=== PATIENT | male | born 1950 | race Caucasian/White ===

== ENCOUNTER 2016-12-02 21:33 | Inpatient (IN) | payer MEDICARE, OTHER ==
--- NOTE | ~2016-12-02 | CT4 ---
[facility] A Service of [facility] RADIOLOGY TEXT RESULTS PATIENT: JUAREZ COHEN LOCATION: C2A 240-01 : 50 UNIT #: [id number] AGE: [address]: Denilson Rodriguez MD SEX: M ORDER DR: [id number] [address] [address] [id number] I MR#: [id number] Acc #: [id number] NAME: JUAREZ COHEN : 1950 SEX: M STUDY DATE/TIME: 12/02/2016 22:16 UNIT: SEDOF ROOM: [id number] STUDY DESCRIPTION: CT Abd and Pelv Wo Cont Attending Physician: Martin Ring M.D. Ordering Physician: Pardeep Bose M.D. Primary Care Physician: Pardeep Fowler M.D. MEDICAL IMAGING REPORT This report is preliminary unless electronic signature is present. EXAM CT scan of the abdomen and pelvis without contrast. DATE OF EXAM 12/02/2016 HISTORY Left lower quadrant abdominal pain extending into the back with nausea for 2 weeks. Evaluate for obstructing renal calculus. TECHNIQUE Spiral CT was performed through the abdomen and pelvis without oral or intravenous contrast administration using renal stone protocol. NOTE: This CT exam was performed with one or more of the following radiation dose reduction techniques: automatic exposure control, adjustment of mA and/or kV according to patient size, and iterative reconstruction. FINDINGS There is no obstructing renal or ureteral calculus. There is a 1 mm nonobstructing stone in the left kidney. The right kidney is normal. There is fatty infiltration of the liver. The spleen, pancreas and adrenal glands are normal. The gallbladder is surgically absent. PELVIS FINDINGS: There is colonic diverticulosis. There is wall thickening and inflammatory stranding in the fat surrounding the proximal sigmoid colon probably representing diverticulitis. There is no bowel obstruction or abscess. Given the short segment of involvement, the possibility of colon neoplasm is not excluded on the basis of this examination. Clinical correlation and follow up is recommended. No adenopathy is seen and there is no free fluid in the abdomen or pelvis. The prostate is enlarged measuring 6.6 cm x 6.1 cm x 6.6 cm. There is a left inguinal hernia containing only fat. Atelectatic changes are seen at the lung bases with elevation of the right hemidiaphragm. [facility]. [facility] A Service of [facility] RADIOLOGY TEXT RESULTS PATIENT: JUAREZ COHEN LOCATION: [facility] : 50 UNIT #: [id number] AGE: [address]: Denilson Rodriguez MD SEX: M ORDER DR: IMPRESSION 1. Inflammatory stranding in the mesenteric fat surrounding the proximal sigmoid colon with wall thickening of the colon in this region most likely representing sigmoid diverticulitis. There is no evidence of bowel obstruction or abscess. There is a short segment involvement of the colon. Possibility of colon neoplasm is not completely excluded on the basis of this examination. Clinical correlation and follow up recommended. 2. Fatty infiltration of the liver. 3. Surgical absence of the gallbladder. 4. No obstructing renal or ureteral calculus. Tiny nonobstructing stone left kidney. 5. Enlarged prostate. 6. Left inguinal hernia containing only fat. Dictated by... Cory Romero M.D. THIS IS AN ELECTRONICALLY VERIFIED REPORT Cory Romero M.D. at 12/04/2016 2:19 PM Celeste TD: 12/03/2016 16:53 JOB #: [id number] MEDICAL IMAGING REPORT
--- NOTE | ~2016-12-02 | HP ---
Unit #: [id number] #: [id number] Patient: JUAREZ COHEN [id number] [address] [address] [id number] I MR#: [id number] NAME: JUAREZ COHEN ROOM: 240 Age: 66 Sex: M Admission Date: 12/02/2016 : 1950 Attending Physician: Denilson Rodriguez M.D. Primary Care Physician: Pardeep Fowler M.D. HISTORY AND PHYSICAL REASON FOR ADMISSION Abdominal pain, acute diverticulitis. HISTORY OF PRESENT ILLNESS The patient is a very pleasant 66-year-old male who states that approximately 2 or 3 weeks ago he began feeling right-sided flank pain and/or discomfort. He had a prior history of nephrolithiasis and went to go see his primary care physician. He was actually being set up for an outpatient CT scan for kidney stone protocol. Unfortunately, over the past 48 to 72 hours his pain worsened in his left lower quadrant with radiation into his back and, therefore, he presented to the emergency room for further evaluation. He underwent a CT of the abdomen and pelvis which had revealed findings consistent with inflammatory stranding surrounding the proximal sigmoid colon with wall thickening, likely consistent with sigmoid diverticulitis. Official CT report is not available to me, but per emergency room notation results as stated above. His initial white count was also elevated at 13.3 and, thus, he is currently being admitted and I am evaluating him on the medical/surgical floor. PAST MEDICAL HISTORY 1. Nephrolithiasis. 2. Gastroesophageal reflux disease. 3. Diabetes. PAST SURGICAL HISTORY 1. Cervical fusion. 2. Lithotripsy. 3. Cholecystectomy. SOCIAL HISTORY No alcohol. No tobacco use. He currently works at [employer]. FAMILY HISTORY Hypertension. ALLERGIES No known drug allergies. HOME MEDICATIONS 1. Janumet. 2. Amaryl. 3. Allopurinol. Unit #: [id number] #: [id number] Patient: JUAREZ COHEN 4. Aspirin. 5. [place]. 6. Starlix. REVIEW OF SYSTEMS Please see history of present illness. Twelve points otherwise negative except for those positives noted in the history of present illness. PHYSICAL EXAMINATION GENERAL: The patient is a 66-year-old male lying comfortably, in no acute distress. VITALS: Temperature 97.5, pulse 84, respiratory rate 18, blood pressure 123/77. HEENT: Atraumatic, normocephalic. Ears, tympanic membranes no erythema or injection. NECK: Supple. No jugular venous distension. LUNGS: Clear to auscultation bilaterally. No wheezing, rales or rhonchi. HEART: S1 and S2 without murmur. ABDOMEN: Distended with left lower quadrant tenderness noted on palpation. No rebound. No guarding. EXTREMITIES: No lower extremity edema. NEUROLOGIC: The patient is alert and oriented times three. No evidence of any focal nerve deficits. PSYCHIATRIC: The patient demonstrates normal mood and affect. DIAGNOSTIC STUDIES LABORATORY: Aforementioned elevated white count on admission. This morning's white count is currently 9.5. ASSESSMENT 1. Acute sigmoid diverticulitis. 2. Abdominal pain. 3. Prior history of nephrolithiasis. 4. Diabetes. 5. Prior history of chronic pain secondary to degenerative disc disease. PLAN Admission to medical/surgical floor. Appropriate symptom management with morphine on a p.r.n. basis. IV Flagyl. IV Levaquin. Clear diet for today. Follow up white count. Transition to regular diet over the next 24 to 48 hours. Blood cultures currently pending. Plans have been reviewed with the patient in detail. Further hospital course to follow pending clinical course. Dictated by Lilliana Contreras/demetria TD: 12/03/2016 09:09 JOB #: [id number] Unit #: [id number] #: [id number] Patient: JUAREZ COHEN HISTORY AND PHYSICAL X Denilson Rodriguez MD X HISTORY AND PHYSICAL
--- NOTE | ~2016-12-02 | DS ---
Unit #: [id number] #: [id number] Patient: JUAREZ COHEN [id number] [address] [place], [place] [address] [id number] I MR#: [id number] NAME: JUAREZ COHEN ROOM: 240 Age: 66 Sex: M Admission Date: 12/03/2016 : 1950 Discharge Date: 12/04/2016 Attending Physician: Denilson Rodriguez M.D. Primary Care Physician: Pardeep Fowler M.D. DISCHARGE SUMMARY REASON FOR ADMISSION Acute diverticulitis. HISTORY OF PRESENT ILLNESS Please see H and P for complete details of initial part of hospital stay. HOSPITAL COURSE The patient had repeat laboratory studies which yielded a white count of 6.8. His BMP was relatively unremarkable through his hospital course. His A1c was noted to be 6.9%. It seems at this point he has been tolerating a regular diet without any difficulty. No fevers and with a normal white count. He appears stable to be discharged home. At time of discharge, I have recommended that he follow with his PCP in approximately seven to ten days. Consideration for outpatient colonoscopy in approximately four to six weeks secondary to inflammatory changes as well as concern for underlying colon neoplasm is not entirely excluded on the CT scan. I did reinforce with the patient and he says that he will follow up with his PCP and discuss with him as an outpatient. FINAL DISCHARGE DIAGNOSES 1. Acute diverticulitis. 2. Abdominal pain, now resolved. 3. Prior history of nephrolithiasis with negative CT on this hospital admission for renal stone. 4. Gastroesophageal reflux disease. 5. Diabetes. 6. Chronic osteoarthritis. FINAL DISCHARGE MEDICATIONS 1. Levaquin 500 mg p.o. daily x10 days. 2. Flagyl 500 mg p.o. q.8 x10 days. 3. Starlix 120 mg p.o. daily. 4. Janumet , one tablet p.o. b.i.d. 5. Allopurinol 300 mg p.o. daily. 6. Aspirin 81 mg p.o. daily. 7. [place] 10/325, one tablet p.o. q.6 p.r.n. This is a home medication. 8. Amaryl 4 mg daily. DISCHARGE CONDITION Stable. Unit #: [id number] #: [id number] Patient: JUAREZ COHEN DISCHARGE DISPOSITION Home. Dictated by... Lilliana Contreras/med TD: 12/05/2016 09:39 JOB #: [id number] DISCHARGE SUMMARY X Denilson Rodriguez MD X DISCHARGE SUMMARY
[2016-12-02 21:14] LABS: URINE SOURCE CLEAN CATCH
[2016-12-02 21:16] LABS: URINE APPEARANCE CLEAR; URINE BILIRUBIN NEG (NEG); URINE BLOOD NEG (NEG); URINE COLOR YELLOW; URINE KETONE NEG (NEG); URINE LEUKOCYTE ESTERASE NEG (NEG); URINE NITRATE NEG (NEG); URINE PH 5.5 (5-8); URINE PROTEIN NEG (NEG); URINE UROBILINOGEN 0.2 MG/DL (NORM)
[2016-12-02 21:18] LABS: MICRO INDICATED? NO; URINE GLUCOSE NEG (NORM)
[~2016-12-02 21:33] MED LIST: ALLOPURINOL300 MG PO; AMARYL PO; JANUMET 50-1,1 UDTAB PO; NATEGLINIDE120 MG PO; NORCO 10/3251 TAB PO; ST. JOSEPH ASPI81 M2 PO
[2016-12-02 21:53] LABS: BASOPHIL# 0.1 X10e3 (0-0.3); BASOPHIL% 0.8 % (0-2.5); DIFF IND NO; EOSINOPHIL# 0.2 X10e3 (0-0.7); EOSINOPHIL% 1.7 % (0.0-7.0); LYMPHOCYTE# 2.6 X10e3 (1.0-3.5); LYMPHOCYTE% 19.7 % (17.0-45.0); MEAN CELL VOLUME 83.6 FL (83-96); MEAN CORPUSCULAR HEMOGLOBIN 27.9 PG (28-34); MEAN CORPUSCULAR HGB CONC 33.4 g/dL (30-36); MEAN PLATELET VOLUME 7.8 FL (6.5-11.5); MONOCYTE# 1.2 X10e3 (0-1.0); MONOCYTE% 8.8 % (3.0-12.0); NEUTROPHIL# 9.2 X10e3 (1.5-7.1); PLATELET COUNT 238 X10e3 (140-420); RED BLOOD COUNT 5.74 X10e (3.90-5.60); RED CELL DISTRIBUTION WIDTH 14.3 % (11.0-15.5); WHITE BLOOD COUNT 13.3 X10e3 (4.0-10.5)
[2016-12-02 22:06] LABS: ALBUMIN SERUM 4.2 g/dL (3.5-5.0); ALKALINE PHOSPHATASE 54 U/L (32-92); ALT (SGPT) 34 U/L (10-40); AST (SGOT) 29 U/L (10-42); BILIRUBIN,TOTAL 0.5 mg/dL (0.2-2.0); BLOOD UREA NITROGEN 11 mg/dL (9-23); CALCIUM SERUM 9.2 mg/dL (8.4-10.2); CARBON DIOXIDE 29 mmol/L (22-31); CHLORIDE 101 mmol/L (100-111); CREATININE SERUM 1.1 mg/dL (0.6-1.4); GLOM FILT RATE Estimated ABOVE60 mL/min (>60); GLUCOSE FASTING 100 mg/dL (70-110); LIPASE 48 U/L (22-51); POTASSIUM 3.8 mmol/L (3.5-5.1); PROTEIN TOTAL SERUM 7.5 g/dL (6.0-8.3); SODIUM 135 mmol/L (135-145)
[2016-12-02 22:08] LABS: BILIRUBIN, DIRECT <0.1 mg/dL (0.0-0.2); BILIRUBIN,INDIRECT 0.4 mg/dL (0.0-0.9)
[2016-12-03 05:41] LABS: BASOPHIL% 0.5 % (0-2.5); EOSINOPHIL# 0.2 X10e3 (0-0.7); EOSINOPHIL% 1.7 % (0.0-7.0); HEMATOCRIT 44.1 % (38.0-50.0); HEMOGLOBIN 14.7 gm/dL (13.0-16.0); LYMPHOCYTE# 2.1 X10e3 (1.0-3.5); LYMPHOCYTE% 22.6 % (17.0-45.0); MEAN CELL VOLUME 83.8 FL (83-96); MEAN CORPUSCULAR HGB CONC 33.4 g/dL (30-36); MEAN PLATELET VOLUME 7.6 FL (6.5-11.5); MONOCYTE# 0.9 X10e3 (0-1.0); MONOCYTE% 9.5 % (3.0-12.0); NEUTROPHIL# 6.2 X10e3 (1.5-7.1); NEUTROPHIL% 65.7 % (40-75); PLATELET COUNT 180 X10e3 (140-420); RED BLOOD COUNT 5.26 X10e (3.90-5.60); RED CELL DISTRIBUTION WIDTH 14.4 % (11.0-15.5); WHITE BLOOD COUNT 9.5 X10e3 (4.0-10.5)
[2016-12-03 05:44] LABS: DIFF IND NO
[2016-12-03 06:15] LABS: BLOOD UREA NITROGEN 13 mg/dL (9-23); BUN/CREATININE RATIO 10.83; CALCIUM SERUM 8.8 mg/dL (8.4-10.2); CARBON DIOXIDE 28 mmol/L (22-31); CHLORIDE 102 mmol/L (100-111); CREATININE SERUM 1.2 mg/dL (0.6-1.4); GLOM FILT RATE Estimated ABOVE60 mL/min (>60); GLUCOSE FASTING 131 mg/dL (70-110); POTASSIUM 3.9 mmol/L (3.5-5.1); SODIUM 137 mmol/L (135-145)
[2016-12-04 06:09] LABS: HEMATOCRIT 41.5 % (38.0-50.0); HEMOGLOBIN 14.1 gm/dL (13.0-16.0); MEAN CELL VOLUME 83.6 FL (83-96); MEAN CORPUSCULAR HEMOGLOBIN 28.4 PG (28-34); MEAN PLATELET VOLUME 7.7 FL (6.5-11.5); RED BLOOD COUNT 4.97 X10e (3.90-5.60); RED CELL DISTRIBUTION WIDTH 14.7 % (11.0-15.5); WHITE BLOOD COUNT 6.8 X10e3 (4.0-10.5)
[2016-12-04 06:55] LABS: BLOOD UREA NITROGEN 8 mg/dL (9-23); CALCIUM SERUM 8.8 mg/dL (8.4-10.2); CARBON DIOXIDE 28 mmol/L (22-31); CHLORIDE 104 mmol/L (100-111); CREATININE SERUM 0.8 mg/dL (0.6-1.4); GLOM FILT RATE Estimated ABOVE60 mL/min (>60); GLUCOSE FASTING 149 mg/dL (70-110); POTASSIUM 4.1 mmol/L (3.5-5.1); SODIUM 138 mmol/L (135-145)
[2016-12-04] MEDS ORDERED: FLAGYL PO (09:31)
[2016-12-04] MEDS ORDERED: LEVAQUIN PO (09:32)
== END 2016-12-04 11:39 | disposition home or self-care (01) | DRG 392 ==
LOC: SED 21:33 → C2A 12-03 01:57
PROVIDERS: Emergency Medicine; Family Medicine; Internal Medicine
DX: K57.32 Diverticulitis of large intestine without perforation or abscess without bleeding (principal); E11.9 Type 2 diabetes mellitus without complications; K21.9 Gastro-esophageal reflux disease without esophagitis; Z79.84 Long term (current) use of oral hypoglycemic drugs; M19.90 Unspecified osteoarthritis, unspecified site; Z90.49 Acquired absence of other specified parts of digestive tract; Z87.442 Personal history of urinary calculi
CPT/HCPCS: 74176; 80048; 80076; 81003; 82947; 83036; 83690; 85025; 85027; 96374; 96375; 99285; J1885; J1956; J2405